=== PATIENT | male | born 1975 | race Hispanic/Latino ===

== ENCOUNTER 2022-05-12 12:02 | Emergency (ER) | payer OTHER ==
--- OUTSIDE RECORDS SUMMARY | 2022-05-12 12:05 | XMS REPORT | Continuity of Care Document ---
:1975 Author Organization [facility] t Address [address] [place] [address] Care Team Providers Name Role Phone Sharpless Primary Care Physician Thien RN, Abbie Argueta Attending Clinician Unavailable Pob1, Acute Care Clinic Attending Clinician Unavailable Lidya Schilling Attending Clinician LIDYA HOGUE Attending Clinician Unavailable Doctor Unassigned, Faith Attending Clinician Unavailable Payers Payer Name Policy Type Policy Number Effective Date Expiration Date S ource Problems Condition Condition Condition Status Onset Resolution Last Treating Co mments Source Name Details Category Date Date Treatment Clinician Date Closed Closed Disease Active [facility] nondisplac nondisplac 8 [facility] ed ed 00:00: Medical fracture fracture 00 Center of seventh of seventh cervical cervical vertebra, vertebra, unspecifie unspecifie d fracture d fracture morphology morphology , initial , initial encounter encounter Cervical Cervical Disease Active [facility] l [facility] Center Hypertensi Hypertensi Disease Active U nivers on on ity of [facility] Hyperlipid Hyperlipid Disease Active U nivers emia emia ity of [facility] Allergies, Adverse Reactions, Alerts Allergy Allergy Status Severity Reaction(s) Onset Inactive Treating Comm ents Source Name Type Date Date Clinician Clindamy Propensi Active Nausea Univer s joby ty to and/or 5-21 ity of adverse Vomiting 00:00: [place] reaction 00 Medical s to Branch drug CLINDAMY DRUG Active N/V Univers JOBY INGREDI 5-21 ity of 00:00: [address] Social History Social Habit Start Date Stop Date Quantity Comments Source History of Cigarette Smoker Universi ty of tobacco use [facility] Alcohol Comment 2019-06-17 2019-06-17 occasional Universit y of 00:00:00 00:00:00 [facility] Alcohol intake 2015-11-17 2015-11-17 Current drinker [facility] 00[facility]00 [facility]:00:00 alcohol (finding) [facility] Center Sex Assigned At [address] [facility] 00:00:00 [facility]00 [facility] Smoking Status Start Date Stop Date Source Current some day smoker 2019-06-17 00:00:00 [facility] Medications Ordered Filled Start Stop Current Ordering Indication Dosage Frequency Signature Comments Components Source Medication Medication Date Date Medication? Clinician (SIG) Name Name losartan Yes 50mg Take 50 mg Uni vers 100 mg 3-27 by mouth. ity of tablet 17:17: [address] losartan 2019-0 Yes 50mg Take 50 mg Uni vers 100 mg 3-27 by mouth. ity of tablet 17:17: [address] losartan 2019-0 Yes 50mg Take 50 mg Uni vers 100 mg 3-27 by mouth. ity of tablet 17:17: [address] amLODIPine 2019-0 2020- No 2.5mg Take 2.5 U nivers 2.5 mg 2-10 05-11 mg by ity of tablet 00:00: 04:59 mouth. [place] 00 :00 [facility] amLODIPine 2019-0 2020- No 2.5mg Take 2.5 U nivers 2.5 mg 2-10 05-11 mg by ity of tablet 00:00: 04:59 mouth. [place] 00 :00 [facility] amLODIPine 2019-0 2020- No 2.5mg Take 2.5 U nivers 2.5 mg 2-10 05-11 mg by ity of tablet 00:00: 04:59 mouth. [place] 00 :00 [facility] metFORMIN 2019-0 Yes 500mg Take 500 Uni vers 500 mg 2-06 mg by ity of tablet 00:00: mouth 2 [place] (two) Medical times Branch daily. metFORMIN 2020-0 Yes 500mg Take 500 Uni vers 500 mg 2-06 mg by ity of tablet 00:00: mouth 2 [place] (two) Medical times Branch daily. metFORMIN Yes 500mg Take 500 Uni vers 500 mg 2-06 mg by ity of tablet 00:00: mouth 2 [place] (two) Medical times Branch daily. simvastatin 2018-03- No 10mg Take 10 mg Univers 10 mg 07-17 by mouth. ity of tablet 00:00: 04:59 [place] 00 :00 Medical Branch simvastatin 2018-03- No 10mg Take 10 mg Univers 10 mg 07-17 by mouth. ity of tablet 00:00: 04:59 [place] 00 :00 Medical Branch simvastatin 2018-03- No 10mg Take 10 mg Univers 10 mg 07-17 by mouth. ity of tablet 00:00: 04:59 [place] 00 :00 Medical Branch LOSARTAN 2015- Yes 50mg QD Take [address] POTASSIUM 8-29 by mouth [facility] (LOSARTAN 04:59: daily. Medica l ORAL) 43 Center traMADol Yes 50mg Q.[id number] Take [address] (ULTRAM) 50 8- [id number] by mouth 3 [facility] mg tablet 04:59: 3D (three) Medic al 43 times Center daily. ondansetron Yes 4mg Take [address] (ZOFRAN) 4 11-18 by mouth [facility] MG tablet 04:59: every 8 Medic al 43 (eight) Center hours. ergocalcife Yes 25107M Q7D Take [facility] rol 8-29 50,000 [facility] (VITAMIN 04:59: Units by Medic al D2) 50,[address] unit a week. capsule metFORMIN Yes 500mg Take [address] (GLUCOPHAGE 8-29 mg by [facility] ) 500 MG 04:59: mouth 2 Medica l tablet 43 (two) Center times daily with breakfast and dinner. amLODIPine 2015-0 Yes 2.5mg QD Take 2.[address] (NORVASC) 8-29 mg by [facility] 2.5 MG 04:59: mouth Medical tablet 43 daily. Center METRONIDAZO 2015-0 Yes 500mg Q.[id number] Take [address] LE ORAL 8-08 [id number] mg by [facility]ukes 00:00: 3D mouth 3 Medical 00 (three) Center times daily. Vital Signs Vital Name Observation Time Observation Value Comments Source Systolic blood 2019-06-17 17:15:00 138 mm[Hg] Univer sity of pressure [facility] Diastolic blood 2019-06-17 17:15:00 92 mm[Hg] Unive rsity of pressure [facility] Heart rate 2019-06-17 17:14:00 97 /min [facility] Body temperature 2019-06-17 17:14:00 37.22 Larisa [facility] Respiratory rate 2019-06-17 17:14:00 18 /min [facility] Body height 2019-06-17 17:14:00 165.1 cm Universi [facility] Body weight 2019-06-17 17:14:00 99.791 kg [facility] BMI 2019-06-17 17:14:00 36.61 kg/m2 [facility] Oxygen saturation in 2019-06-17 17:14:00 98 /min [facility] blood by [facility] Pulse oximetry [place] Procedures Procedure Date / Time Performed Performing Clinician [facility] e CONSENT/REFUSAL FOR 2019-06-17 05:01:00 Doctor Unassigned, No Un [facility] DIAGNOSIS AND Name [facility] TREATMENT POCT FLU A AND B 2019-06-17 00:00:00 Lidya Hogue [facility] ([facility]) [facility] Encounters Start End Encounter Admission Attending Care Care Encounter Source Date/Time Date/Time Type Type Clinicians Facility Department ID 2019-06-19 2019-06-19 Telephone KEENA Neumann [id number] Univers 00:00:00 00:00:00 Abbie [place] [id number] ity of [facility] [id number] [place] [phone] [facility] 019 Branch 2019-06-17 2019-06-17 Urgent Pob1, Acute Care Clinic [facility] [id number] Univers 11:59:43 12:19:43 Lidya [facility] [id number] ity [facility] [id number] [place] Professio [phone] Ok dical [facility] [address] Branch [address] 2019-06-17 2019-06-17 Outpatient R RICHIE HOGUE [facility] [id number] Univers 12:00:00 12:00:00 LIDYA burkett [facility] 2019-06-17 2019-06-17 Orders Doctor KEENA [id number] Univers 00:00:00 00:00:00 Only Unassigned, YOKASTA [id number] ity of Faith [facility] [id number] [place] [phone] [address] Results Test Description Test Time Test Comments Results Result Comments Source POCT FLU A AND B (MOLECULAR) 2019-06-17 17:33:00 Test Item Value Reference Range Interpretation Comme nts POCT INFLUENZA A (test code = 3840) Negative Negative - Negativ e POCT INFLUENZA B (test code = 3841) Negative Negative - Negativ e [facility]
[2022-05-12 13:11] LABS: Urine Blood Negative (Negative); Urine Glucose Negative (Negative); Urine Protein Trace (Negative); Urine pH 5.5 (5.0-7.0)
[2022-05-12 13:12] LABS: Hematocrit 41.4 % (39.6-49.0); Lymphocytes % 25.6 % (15.3-44.8); MCV 87.8 fL (80-100); MPV 6.7 fL (7.6-11.3); RBC Red Blood Cell Count 4.72 M/uL (4.33-5.43)
[2022-05-12 13:22] LABS: Albumin 3.5 g/dL (3.4-5.0); Bilirubin Total 1.1 mg/dL (0.2-1.0); Potassium 3.6 mmol/L (3.5-5.1)
--- NOTE | 2022-05-12 14:03 | RAD REPORT ---
EXAM DESCRIPTION: CTAbdomen Pelvis W Contrast - 05/12/2022 1:45 pm CLINICAL HISTORY: Abdominal pain. ABD PAIN COMPARISON: No comparisons TECHNIQUE: Biphasic CT imaging of the abdomen and pelvis was performed with 100 ml non-ionic IV cont rast. All CT scans are performed using dose optimization technique as appropriate and may include automated exposure control or mA/KV adjustment according to patient size. FINDINGS: The lung bases are clear. The liver shows diffuse fatty infiltration. Cholecystectomy. Spleen, pancreas, adrenal glands and kid neys are within normal limits. No bowel obstruction, free air, free fluid or abscess. The appendix is normal. No evidence of signi ficant lymphadenopathy. No suspicious bony findings. IMPRESSION: No acute intra-abdominal or pelvic finding. Fatty liver.
--- NOTE | 2022-05-12 15:25 | EDPHYS ---
Physician Documentation [facility] Name: Trey Grover Age: 47 yrs Sex: Male : 1975 Arrival Date: 05/12/2022 Time: 12:05 Bed 12 Private MD: ED Physician Darek Freed HPI: 05/12 16:48 This 47 yrs old Male presents to ER via Ambulatory with complaints of kb Abdominal Pain. 16:48 The patient presents with abdominal pain in the upper abdomen. Onset: The kb symptoms/episode began/occurred 2 day(s) ago. The symptoms do not radiate. Associated signs and symptoms: Pertinent positives: constipation, nausea, Pertinent negatives: fever, vomiting. The symptoms are described as constant. Modifying factors: The symptoms are alleviated by nothing, the symptoms are aggravated by nothing. Severity of pain: At its worst the pain was mild moderate in the emergency department the pain is unchanged. The patient has not experienced similar symptoms in the past. The patient has not recently seen a physician. Patient reports constipation and had upper abdominal pain for 2 days. States he was able to have a bowel movement this morning but he went to the to come get checked out because he will be out of town for work for the next week. Reports nausea body aches, and malaise.. Historical: - Allergies: 12:23 No Known Allergies; jl7 - Home Meds: 12:23 metformin 500 mg Oral Tb24 1 tab once daily [Active]; losartan 25 mg Oral tab 1 tab 2 jl7 times per day [Active]; hydrochlorothiazide Oral [Active]; - PMHx: 12:23 Diabetes - NIDDM; Diverticulitis; Hypertension; jl7 - PSHx: 12:23 Cholecystectomy; jl7 - Immunization history:: Client reports receiving the 2nd dose of the Covid vaccine. - Social history:: Smoking status: Patient denies any tobacco usage or history of. ROS: 16:22 Constitutional: Negative for fever, chills, and weight loss. kb 16:22 Abdomen/GI: Positive for abdominal pain, nausea, Negative for vomiting, diarrhea, constipation. 16:22 All other systems are negative. Exam: 16:22 Constitutional: This is a well developed, well nourished patient who is awake, alert, kb and in no acute distress. Head/Face: Normocephalic, atraumatic. ENT: Moist Mucous membranes Cardiovascular: Regular rate and rhythm with a normal S1 and S2. No gallops, murmurs, or rubs. No pulse deficits. Respiratory: Respirations even and unlabored. No increased work of breathing. Talking in full sentences Abdomen/GI: Soft, non-tender. No distention Skin: Warm, dry with normal turgor. Normal color. MS/ Extremity: Pulses equal, no cyanosis. Neurovascular intact. Full, normal range of motion. Neuro: Awake and alert, GCS 15, oriented to person, place, time, and situation. Moves all extremities. Normal gait. Vital Signs: 12:22 BP 96 / 73; Pulse 100; Resp 17; Temp 98.1; Pulse Ox 96% on R/A; jl7 MDM: 12:24 Patient medically screened. kb 16:23 Differential diagnosis: diverticulitis, gastritis, GI Bleed, non-specific abd pain. kb Data reviewed: vital signs, nurses notes. 16:50 Test considered but Not performed: Labs: COVID and flu test considered for malaise and kb body aches but patient does not want to be tested for those things.. 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 ED course: Patient is a 47-year-old male who presents with upper abdominal pain and constipation for a couple days as well as nausea, malaise and body aches that started today. Physical exam unremarkable, no abdominal tenderness. CT and serum labs done and reviewed, no acute findings. Patient educated to follow-up with PCP and GI for continued symptoms. Verbal understanding received. 05/12 12:24 Order name: CBC with Diff kb 05/12 12:24 Order name: CMP kb 05/12 12:24 Order name: Lipase kb 05/12 13:12 Order name: Urine Dipstick-Ancillary; Complete Time: 13:15 EDMS 05/12 13:20 Order name: CBC with Automated Diff; Complete Time: 13:20 EDMS 05/12 13:23 Order name: Comprehensive Metabolic Panel; Complete Time: 13:29 EDMS 05/12 12:24 Order name: CT Abd/Pelvis - IV Contrast Only kb 05/12 12:24 Order name: IV Saline Lock; Complete Time: 13:00 kb 05/12 12:24 Order name: Labs collected and sent; Complete Time: 13:00 kb 05/12 13:23 Order name: Lipase; Complete Time: 13:29 EDMS 05/12 14:03 Order name: CT; Complete Time: 14:03 EDMA 05/12 12:24 Order name: Urine Dipstick-Ancillary (obtain specimen); Complete Time: 13:10 kb Administered Medications: 15:50 Drug: Zofran (Ondansetron) 4 mg Route: IVP; Site: right antecubital; ss 15:52 Drug: NS 0.9% 1000 ml Route: IV; Rate: 1 bolus; Site: right antecubital; ss 15:52 Drug: Pepcid (famotidine) 20 mg Route: IVP; Site: right antecubital; ss Disposition: 16:35 Co-signature as Attending Physician, Darek Freed MD I reviewed the patient's care rn provided by the Advanced Practice Provider and agree with the diagnosis and treatment plan. Disposition Summary: 05/12/22 15:24 Discharge Ordered Location: Home kb Condition: Stable kb Diagnosis - Abdominal pain, Generalized kb Followup: kb - With: Private Physician - When: 2 - 3 days - Reason: Recheck today's complaints, Continuance of care, Re-evaluation by your physician Followup: kb - With: Emergency Department - When: As needed - Reason: Worsening of condition Discharge Instructions: - Discharge Summary Sheet kb - Abdominal Pain, Adult, [id number] kb Forms: - Medication Reconciliation Form kb - Thank You Letter kb - Antibiotic Education kb - Prescription Opioid Use kb Signatures: Dispatcher [employer] EDMS Jennifer Cifuentes, PORTABLE TRACK CREW CHIEF-C PORTABLE TRACK CREW CHIEF-Nashb Darek Freed MD MD rn Smirch, Shelby, RN RN ss Leal, Jahala, RN RN jl7
--- NOTE | 2022-05-12 15:25 | ER ---
Nurse's Notes [facility] Name: Trey Grover Age: 47 yrs Sex: Male : 1975 Arrival Date: 05/12/2022 Time: 12:05 Bed 12 Private MD: Diagnosis: Abdominal pain, Generalized Presentation: 05/12 12:22 Chief complaint: Patient states: Upper abdominal pain and nausea x 1 day. Coronavirus jl7 screen: At this time, the client does not indicate any symptoms associated with coronavirus-19. Ebola Screen: No symptoms or risks identified at this time. Initial Sepsis Screen: Does the patient meet any 2 criteria? No. Patient's initial sepsis screen is negative. Does the patient have a suspected source of infection? No. Patient's initial sepsis screen is negative. Risk Assessment: Do you want to hurt yourself or someone else? Patient reports no desire to harm self or others. Onset of symptoms was May 11, 2022. 12:22 Method Of Arrival: Ambulatory jl7 12:22 Acuity: JAMARCUS 3 jl7 Triage Assessment: 12:23 General: Appears in no apparent distress. uncomfortable, Behavior is calm, cooperative, jl7 appropriate for age. Pain: Complains of pain in epigastric area, right upper quadrant and left upper quadrant Pain currently is 3 out of 10 on a pain scale. GI: Reports nausea, Patient currently denies diarrhea, vomiting. Historical: - Allergies: 12:23 No Known Allergies; jl7 - Home Meds: 12:23 metformin 500 mg Oral Tb24 1 tab once daily [Active]; losartan 25 mg Oral tab 1 tab 2 jl7 times per day [Active]; hydrochlorothiazide Oral [Active]; - PMHx: 12:23 Diabetes - NIDDM; Diverticulitis; Hypertension; jl7 - PSHx: 12:23 Cholecystectomy; jl7 - Immunization history:: Client reports receiving the 2nd dose of the Covid vaccine. - Social history:: Smoking status: Patient denies any tobacco usage or history of. Screenin:21 [facility] ED Fall Risk Assessment (Adult) History of falling in the last 3 months, ss including since admission No falls in past 3 months (0 pts). Abuse screen: Denies threats or abuse. Denies injuries from another. Nutritional screening: No deficits noted. Tuberculosis screening: Never had TB. Assessment: 12:25 Reassessment: MAVERICK Rodriguez in triage assessing pt. jl7 16:00 General: Appears in no apparent distress. comfortable, Behavior is calm, cooperative. ss Neuro: Level of Consciousness is awake, alert, obeys commands, Oriented to person, place, time, situation. Cardiovascular: Capillary refill < 3 seconds is brisk in bilateral fingers Patient's skin is warm and dry. Respiratory: Airway is patent Respiratory effort is even, unlabored, Respiratory pattern is regular, symmetrical. Derm: Skin is intact, is healthy with good turgor, Skin is dry, Skin is pink, warm \T\ dry. normal. 16:20 Reassessment: Patient appears in no apparent distress at this time. Patient and/or ss family updated on plan of care and expected duration. Pain level reassessed. Patient is alert, oriented x 3, equal unlabored respirations, skin warm/dry/pink. Patient states feeling better. Patient states symptoms have improved. Vital Signs: 12:22 BP 96 / 73; Pulse 100; Resp 17; Temp 98.1; Pulse Ox 96% on R/A; jl7 ED Course: 12:05 Patient arrived in ED. mr 12:06 Jennifer Cifuentes, [facility] kb 12:06 Darek Freed MD is Attending Physician. kb 12:23 Triage completed. jl7 12:23 Arm band placed on right wrist. jl7 13:00 Inserted saline lock: 20 gauge in right antecubital area, using aseptic technique. Blood collected. 13:00 CBC with Diff Sent. zm 13:00 CMP Sent. 13:00 Lipase Sent. 15:51 Rochelle Chan, DAVID is Primary Nurse. ss 15:51 No provider procedures requiring assistance completed. IV discontinued, intact, ss bleeding controlled, No redness/swelling at site. Pressure dressing applied. Administered Medications: 15:50 Drug: Zofran (Ondansetron) 4 mg Route: IVP; Site: right antecubital; ss 15:52 Drug: NS 0.9% 1000 ml Route: IV; Rate: 1 bolus; Site: right antecubital; ss 15:52 Drug: Pepcid (famotidine) 20 mg Route: IVP; Site: right antecubital; ss Medication: 16:21 VIS not applicable for this client. ss Outcome: 15:24 Discharge ordered by . kenn 16:20 Discharged to home ambulatory. ss 16:20 Condition: good 16:20 Discharge instructions given to patient, Instructed on discharge instructions, follow up and referral plans. Demonstrated understanding of instructions, follow-up care. 16:24 Patient left the ED. Signatures: Jennifer Cifuentes, MICHELLEC RESERVOIR ENGINEERING MANAGER-Ronal MorinJenna mr Rochelle Chan RN RN Jsesica Read RN RN jl7 Rebeca Bruno Corrections: (The following items were deleted from the chart) 16:20 15:51 Patient did not have IV access during this emergency room visit. ss ss
[2022-05-12] MEDS ORDERED: FAMOTIDINE 20 MG/2 ML VIAL IV ONE (15:48)
[2022-05-12] MEDS ORDERED: NA CHLORIDE 0.9% 1,000 ML ONE (15:48)
[2022-05-12] MEDS ORDERED: ONDANSETRON 4 MG/2 ML VIAL ONE (15:48)
[2022-05-12 17:51] VITALS: BP 96/73; TEMP 98.1; O2SAT 96
== END 2022-05-12 16:24 | disposition home or self-care (01) ==
LOC: ER 12:02
DX: R10.84 Generalized abdominal pain (principal); I10 Essential (primary) hypertension; E11.9 Type 2 diabetes mellitus without complications
CPT/HCPCS: 85025; 36415; 81003; 83690; 80053; 74177; 96375; 96374; 99283; Q9967; J7030; J2405

== ENCOUNTER → 2023-04-16 | Emergency (ER) | payer OTHER ==
[~2023-04-16] MED LIST: DIPHENHYDRAMINE 50 MG/ML VIAL ONE; METOCLOPRAMIDE 10 MG/2mL INJ ONE; MORPHINE 2 MG/ML SYR ONE; NA CHLORIDE 0.9% 1,000 ML ONE; NA CHLORIDE 0.9% 500 ML ONE
[2023-04-16 16:51] LABS: Absolute Lymphocytes (CBC) 1.1 K/uL (0.7-4.9); Hematocrit 41.3 % (39.6-49.0); Lymphocytes % 25.1 % (15.3-44.8); MCV 88.2 fL (80-100); MPV 7.1 fL (7.6-11.3); Platelets 147 thou/uL (152-406); RBC Red Blood Cell Count 4.68 M/uL (4.33-5.43)
[2023-04-16 17:07] LABS: Albumin 3.9 g/dL (3.4-5.0); Bilirubin Total 0.5 mg/dL (0.2-1.0); Potassium 3.9 mEq/L (3.5-5.1); Protein, Total 7.5 g/dL (6.4-8.2)
--- NOTE | 2023-04-16 18:06 | RAD REPORT ---
EXAM DESCRIPTION: CTHead angio04/16/2023 5:40 pm CLINICAL HISTORY: Headache and neck pain COMPARISON: none TECHNIQUE: 100 cc Isovue [address] angiogram of the head was obtained. 3D MIPS reconstruction performed. All CT scans are performed using dose optimization technique as appropriate and may include automated exposure control or mA/KV adjustment according to patient size. FINDINGS: The internal carotid, basilar, anterior cerebral, middle cerebral and posterior cerebral a rteries do not demonstrate a significant stenosis An aneurysm is not seen No large vessel occlusion IMPRESSION: No significant abnormality is displayed
--- NOTE | 2023-04-16 18:06 | RAD REPORT ---
EXAM DESCRIPTION: CT - Head C Spine Mpr Wo Con - 04/16/2023 5:31 pm CLINICAL HISTORY: Headache and neck pain COMPARISON: None. TECHNIQUE: Computed axial tomography of the head and cervical spine was obtained. Sagittal and coronal reconstruction was performed. All CT scans are performed using dose optimization technique as appropriate and may include automated exposure control or mA/KV adjustment according to patient size. FINDINGS: An intracranial bleed is not seen. The ventricles are normal in caliber. No significant hypodensity within the brain. An extra-axial fluid collection is not noted. Fluid within the visualized sinuses and mastoids is not seen A cervical fracture is not visualized. No dislocation is noted. Osteophytes and facet hypertrophy at C2-3 result in moderate narrowing left neural foramina Anterior plate, screws and bone plugs have been placed C5 and C6. Calcification posterior longitudinal ligament C7 results in mild narrowing the thecal sac. IMPRESSION: No acute intracranial abnormality is seen. A cervical fracture is not visualized. 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
--- NOTE | 2023-04-16 18:06 | RAD REPORT ---
EXAM DESCRIPTION: Jono Angio04/16/2023 5:40 pm CLINICAL HISTORY: Headache and neck pain COMPARISON: None TECHNIQUE: 100 cc Isovue [address] angiogram of the neck was obtained. 3D MIPS reconstruction performed. All CT scans are performed using dose optimization technique as appropriate and may include automated exposure control or mA/KV adjustment according to patient size. FINDINGS: Mild plaque is present within common carotid, internal carotid and external carotid arteri es bilaterally Mild plaque vertebral arteries No dissection is seen. No high-grade stenosis IMPRESSION: No significant abnormality is displayed [place] crieria Mild stenosis 0 to 49 % Moderate stenosis 50-69% Severe stenosis 70-99%
--- NOTE | 2023-04-16 18:36 | ER ---
Nurse's Notes [facility] Name: Trey Grover Age: 48 yrs Sex: Male : 1975 Arrival Date: 04/16/2023 Time: 15:50 Bed 4 Private MD: Diagnosis: Headache Presentation: 04/16 16:00 Chief complaint: Patient states: he has a headache that he woke up with this morning, ap3 but it has gotten progressively worse throughout the day. patient denies any trauma. Coronavirus screen: At this time, the client does not indicate any symptoms associated with coronavirus-19. Ebola Screen: No symptoms or risks identified at this time. Initial Sepsis Screen: Does the patient meet any 2 criteria? No. Patient's initial sepsis screen is negative. Does the patient have a suspected source of infection? No. Patient's initial sepsis screen is negative. Risk Assessment: Do you want to hurt yourself or someone else? Patient reports no desire to harm self or others. Onset of symptoms was April 16, 2023. 16:00 Method Of Arrival: Ambulatory ap3 16:00 Acuity: JAMARCUS 2 ap3 Triage Assessment: 16:02 Headache History: The patient has had previous headaches and this one is different than ap3 previous episodes, and this one is more severe than previous episodes. General: Appears uncomfortable, Behavior is calm, cooperative, appropriate for age. Pain: Complains of pain in right frontal area, right side of the back of head, right temporal area and right occipital area Pain currently is 10 out of 10 on a pain scale. Pain began gradually, Also complains of photophobia. Neuro: Level of Consciousness is awake, alert, obeys commands, Oriented to person, place, time, situation, Appropriate for age. Cardiovascular: Patient's skin is warm and dry. Respiratory: Airway is patent Respiratory effort is even, unlabored, Respiratory pattern is regular, symmetrical. Historical: - Allergies: 16:05 No Known Allergies; ap3 - Home Meds: 16:49 Hydrochlorothiazide Oral [Active]; losartan 25 mg Oral tab 1 tab 2 times per day tl4 [Active]; metformin 500 mg Oral Tb24 1 tab once daily [Active]; - PMHx: 16:02 Diabetes - NIDDM; Diverticulitis; Hypertension; ap3 - PSHx: 16:02 Cholecystectomy; ap3 - Immunization history:: Client reports receiving the 2nd dose of the Covid vaccine. - Social history:: Smoking status: Patient reports the use of cigarette tobacco products, denies chronic smoking, but will smoke occasionally. - Family history:: not pertinent. - Hospitalizations: : No recent hospitalization is reported. Screenin:03 Abuse screen: Denies threats or abuse. Nutritional screening: No deficits noted. ap3 Tuberculosis screening: No symptoms or risk factors identified. 16:48 [facility] ED Fall Risk Assessment (Adult) History of falling in the last 3 months, tl4 including since admission No falls in past 3 months (0 pts) Confusion or Disorientation No (0 pts) Intoxicated or Sedated No (0 pts) Impaired Gait No (0 pts) Mobility Assist Device Used No (0 pt) Altered Elimination No (0 pt) Score/Fall Risk Level 0 - 2 = Low Risk Oriented to surroundings, Maintained a safe environment, Educated pt \T\ family on fall prevention, incl call for assistance when getting out of bed, Assessed \T\ reinforced patient's understanding of fall precautions, Provided non-skid footwear, Hourly rounding (assess needs \T\ fall precautionary measures) done, Used ambulatory aids as needed (educated on \T\ assisted with), Used gait belt as appropriate. Assessment: 16:47 Reassessment: No changes from previously documented assessment. Patient and/or family tl4 updated on plan of care and expected duration. Pain level reassessed. Patient is alert, oriented x 3, equal unlabored respirations, skin warm/dry/pink. Patient states symptoms have not improved. Pain: Complains of pain in face and right occipital area and right temporal area and right side of the back of head and right frontal area. GI: No deficits noted. No signs and/or symptoms were reported involving the gastrointestinal system. : No deficits noted. No signs and/or symptoms were reported regarding the genitourinary system. EENT: No deficits noted. No signs and/or symptoms were reported regarding the EENT system. Vital Signs: 16:00 Pulse 96; Resp 19; Temp 98.4; Pulse Ox 98% on R/A; ap3 16:02 BP 137 / 85; ap3 16:05 Weight 100.7 kg; Height 5 ft. 5 in. ; ap3 16:48 BP 142 / 90; Pulse 105; Resp 18; Pulse Ox 95% on R/A; Pain 10/10; tl4 18:52 BP 134 / 82; Pulse 95; Resp 15; Pulse Ox 99% ; ko1 16:05 Body Mass Index 36.94 (100.70 kg, 165.1 cm) ap3 16:48 Pain Scale: Adult tl4 [place] Coma Score: 16:48 Eye Response: spontaneous(4). Motor Response: obeys commands(6). Verbal Response: tl4 oriented(5). Total: 15. 18:31 Eye Response: spontaneous(4). Motor Response: obeys commands(6). Verbal Response: rn oriented(5). Total: 15. ED Course: 15:57 Patient arrived in ED. mg5 15:59 Darek Freed MD is Attending Physician. rn 16:00 Attending Physician role handed off by Darek Freed MD shaila 16:00 Karl Hayden MD is Attending Physician. shaila 16:02 Triage completed. ap3 16:03 Arm band placed on right wrist. ap3 16:03 Patient has correct armband on for positive identification. ap3 16:05 Attending Physician role handed off by Karl Hayden MD rn 16:05 Darek Freed MD is Attending Physician. rn 16:45 Comprehensive Metabolic Panel Sent. tl4 16:45 CBC with Diff Sent. tl4 16:46 Inserted saline lock: 20 gauge in right antecubital area, using aseptic technique. tl4 Blood collected. 16:49 Provided Education on: ed process. tl4 16:49 No provider procedures requiring assistance completed. tl4 17:04 Anahi Bauman, RN is Primary Nurse. ko1 17:32 CT Head C Spine In Process Unspecified. EDMS 17:[address] In Process Unspecified. EDMS 17:[address] In Process Unspecified. EDMS 18:52 IV discontinued, intact, bleeding controlled, No redness/swelling at site. Pressure ko1 dressing applied. Administered Medications: 16:06 CANCELLED (Duplicate Order): tsdhecvco15 mg IVP once rn 16:45 Drug: NS 0.9% IV 500 ml IV at bolus once Route: IV; Rate: bolus; Site: right tl4 antecubital; Delivery: Primary tubing; 18:46 Follow up: Response: No adverse reaction; IV Status: Completed infusion; IV Intake: tl4 500ml 16:45 Drug: metoCLOPramide IVP 10 mg IVP once; over 1 to 2 minutes Route: IVP; Infused Over: tl4 2 mins; Site: right antecubital; 18:46 Follow up: Response: No adverse reaction tl4 16:46 Drug: diphenhydrAMINE IVP 50 mg IVP once Route: IVP; Infused Over: 3 mins; Site: right tl4 antecubital; 18:46 Follow up: Response: No adverse reaction tl4 16:46 Drug: morphine IVP or IV 2 mg IVP once over 4 mins Route: IVP; Infused Over: 4 mins; tl4 Site: right antecubital; 17:44 Follow up: Response: No adverse reaction ko1 17:26 Drug: morphine IVP or IV 2 mg IVP once over 4 mins Route: IVP; Infused Over: 4 mins; ko1 Site: right antecubital; 17:44 Follow up: Response: No adverse reaction; Pain is decreased ko1 18:46 Drug: NS 0.9% IV 1000 ml IV at 125 ml/hr continuous Route: IV; Rate: 125 ml/hr; Site: tl4 right antecubital; 18:47 Follow up: Response: No adverse reaction; IV Status: Completed infusion; IV Intake: tl4 200ml Medication: 16:48 VIS not applicable for this client. tl4 Intake: 18:46 IV: 500ml; Total: 500ml. tl4 18:47 IV: 200ml; Total: 700ml. tl4 Outcome: 18:35 Discharge ordered by . luiz 18:52 Discharged to home ambulatory, with family, ko1 18:52 Condition: stable 18:52 Discharge instructions given to patient, family, Instructed on discharge instructions, follow up and referral plans. Demonstrated understanding of instructions, follow-up care, 18:57 Patient left the ED. ko1 Signatures: Dispatcher [employer] EDKarl Amezquita MD MD cha Nieto, Roman, MD MD rn Prokisch, Amanda, RN RN ap3 Oliver, Kathy, RN RN ko1 Danielle Khalil mg5 Sid Sherman tl4
--- NOTE | 2023-04-16 18:36 | EDPHYS ---
Physician Documentation [facility] Name: Trey Grover Age: 48 yrs Sex: Male : 1975 Arrival Date: 04/16/2023 Time: 15:50 Bed 4 Private MD: ED Physician Darek Freed HPI: 04/16 17:48 This 48 yrs old Male presents to ER via Ambulatory with complaints of Headache.rn 17:48 The patient complains of pain to the forehead. The patient describes the headache as rn aching. Onset: The symptoms/episode began/occurred this morning. Associated signs and symptoms: Pertinent negatives: altered mental status, fever, neck stiffness, rash, vision changes, vision loss, vomiting, weakness, vertigo. Severity of symptoms: At its worst the pain was moderate, in the emergency department the pain is unchanged. Headache History: The patient has had previous headaches and this one is similar to previous episodes. The symptoms are alleviated by nothing. the symptoms are aggravated by lights, noise. The patient has experienced similar episodes in the past. The patient has not recently seen a physician. Reports headache that began this morning. Has history of headaches and migraines but worse today. No trauma. No fever. No focal neurological deficit. Reports history of neck problems with posterior headaches. Today is hurting more frontal. No vision changes. No neck stiffness. No weakness or numbness of extremities. No speech problem.. Historical: - Allergies: 16:05 No Known Allergies; ap3 - Home Meds: 16:49 Hydrochlorothiazide Oral [Active]; losartan 25 mg Oral tab 1 tab 2 times per day tl4 [Active]; metformin 500 mg Oral Tb24 1 tab once daily [Active]; - PMHx: 16:02 Diabetes - NIDDM; Diverticulitis; Hypertension; ap3 - PSHx: 16:02 Cholecystectomy; ap3 - Immunization history:: Client reports receiving the 2nd dose of the Covid vaccine. - Social history:: Smoking status: Patient reports the use of cigarette tobacco products, denies chronic smoking, but will smoke occasionally. - Family history:: not pertinent. - Hospitalizations: : No recent hospitalization is reported. ROS: 17:48 Constitutional: Negative for fever, chills, and weight loss, Eyes: Negative for injury, rn pain, redness, and discharge, Neck: Negative for injury, pain, and swelling, Cardiovascular: Negative for chest pain, palpitations, and edema, Respiratory: Negative for shortness of breath, cough, wheezing, and pleuritic chest pain, Abdomen/GI: Negative for abdominal pain, nausea, vomiting, diarrhea, and constipation, Back: Negative for injury and pain, MS/Extremity: Negative for injury and deformity, Skin: Negative for injury, rash, and discoloration, Neuro: Negative for weakness, numbness, tingling, and seizure, Exam: 17:48 Constitutional: This is a well developed, well nourished patient who is awake, alert, 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 Eyes: Pupils equal round and reactive to light, extra-ocular motions intact. Neck: Supple, no meningismus Cardiovascular: Tachycardic, regular. No pulse deficits. Respiratory: No increased work of breathing, no retractions or nasal flaring. Abdomen/GI: Soft, non-tender Neuro: Awake and alert, GCS 15, oriented to person, place, time, and situation. Cranial nerves II-XII grossly intact. Motor strength 5/5 in all extremities. Sensory grossly intact. Cerebellar exam normal. Normal gait. Vital Signs: 16:00 Pulse 96; Resp 19; Temp 98.4; Pulse Ox 98% on R/A; ap3 16:02 BP 137 / 85; ap3 16:05 Weight 100.7 kg; Height 5 ft. 5 in. ; ap3 16:48 BP 142 / 90; Pulse 105; Resp 18; Pulse Ox 95% on R/A; Pain 10/10; tl4 18:52 BP 134 / 82; Pulse 95; Resp 15; Pulse Ox 99% ; ko1 16:05 Body Mass Index 36.94 (100.70 kg, 165.1 cm) ap3 16:48 Pain Scale: Adult tl4 [place] Coma Score: 16:48 Eye Response: spontaneous(4). Motor Response: obeys commands(6). Verbal Response: tl4 oriented(5). Total: 15. 18:31 Eye Response: spontaneous(4). Motor Response: obeys commands(6). Verbal Response: rn oriented(5). Total: 15. MDM: 15:59 Patient medically screened. rn 18:31 Differential diagnosis: hypertensive headache, intracerebral hemorrhage, migraine, rn neoplasm, sinusitis, subarachnoid bleed, tension headache, vasomotor headache. Data reviewed: vital signs, nurses notes, lab test result(s), radiologic studies, CT scan, and as a result, I will discharge patient. Counseling: I had a detailed discussion with the patient and/or guardian regarding the historical points, exam findings, and any diagnostic results supporting the discharge/admit diagnosis, lab results, radiology results, the need for outpatient follow up, to return to the emergency department if symptoms worsen or persist or if there are any questions or concerns that arise at home. Response to treatment: the patient's symptoms have mildly improved after treatment, and as a result, I will discharge patient. Special discussion: I discussed with the patient/guardian in detail that at this point there is no indication for admission to the hospital. It is understood, however, that if the symptoms persist or worsen the patient needs to return immediately for re-evaluation. Based on the history and exam findings, there is no indication for further emergent testing or inpatient evaluation. I discussed with the patient/guardian the need to see the neurologist for further evaluation of the symptoms. I discussed with the patient/guardian the need to see the primary care provider for further evaluation of the symptoms. 18:31 ED course: I have personally reviewed all of the results, including but not limited to rn blood tests and imaging deemed necessary to safely discharge this patient at this time. All results given to and printed out for patient. I personally went over all the results with the patient and answered all questions. Patient will follow-up with PCP and or specialist as discussed. Return precautions given and understood.. 04/16 16:03 Order name: CBC with Diff; Complete Time: 17:10 [facility] 04/16 16:03 Order name: Comprehensive Metabolic Panel; Complete Time: 17:10 [facility] 04/16 16:06 Order name: CT Head C Spine; Complete Time: 18:19 04/16 16:06 Order name: Head Angio CT; Complete Time: 18:19 04/16 16:06 Order name: Neck Angio CT; Complete Time: 18: 04/16 16:04 Order name: Oxygen; Complete Time: 16:29 [facility] Administered Medications: 16:06 CANCELLED (Duplicate Order): mg IVP once rn 16:45 Drug: NS 0.9% IV 500 ml IV at bolus once Route: IV; Rate: bolus; Site: right tl4 antecubital; Delivery: Primary tubing; 18:46 Follow up: Response: No adverse reaction; IV Status: Completed infusion; IV Intake: tl4 500ml 16:45 Drug: metoCLOPramide IVP 10 mg IVP once; over 1 to 2 minutes Route: IVP; Infused Over: tl4 2 mins; Site: right antecubital; 18:46 Follow up: Response: No adverse reaction tl4 16:46 Drug: diphenhydrAMINE IVP 50 mg IVP once Route: IVP; Infused Over: 3 mins; Site: right tl4 antecubital; 18:46 Follow up: Response: No adverse reaction tl4 16:46 Drug: morphine IVP or IV 2 mg IVP once over 4 mins Route: IVP; Infused Over: 4 mins; tl4 Site: right antecubital; 17:44 Follow up: Response: No adverse reaction ko1 17:26 Drug: morphine IVP or IV 2 mg IVP once over 4 mins Route: IVP; Infused Over: 4 mins; ko1 Site: right antecubital; 17:44 Follow up: Response: No adverse reaction; Pain is decreased ko1 18:46 Drug: NS 0.9% IV 1000 ml IV at 125 ml/hr continuous Route: IV; Rate: 125 ml/hr; Site: tl4 right antecubital; 18:47 Follow up: Response: No adverse reaction; IV Status: Completed infusion; IV Intake: tl4 200ml Disposition Summary: 04/16/23 18:35 Discharge Ordered Notes: Location: Home rn Problem: new rn Symptoms: have improved rn Condition: Stable rn Diagnosis - Headache rn Followup: rn - With: Private Physician - When: As needed - Reason: Recheck today's complaints, Re-evaluation by your physician Discharge Instructions: - Discharge Summary Sheet rn - General Headache Without Cause rn - Migraine Headache rn - Hypertension, Adult rn Forms: - Medication Reconciliation Form rn - Thank You Letter rn - Antibiotic staff development coordinator rn - Prescription Opioid Use rn - Patient Portal Instructions rn - Leadership Thank You Letter rn Signatures: Dispatcher [employer] Karl Portillo MD MD cha Nieto, Roman, MD MD rn Prokisch, Amanda, RN RN [email or web address] Anahi Bauman RN RN ko1 Sid Sherman tl4 Corrections: (The following items were deleted from the chart) 16:06 16:03 Ketorolac IVP 30 mg IVP once ordered. shaila dee 16:09 16:04 Head Brain Wo Cont+CT.RAD.BRZ ordered. EDMS EDMS
[2023-04-16 20:07] VITALS: TEMP 98.4
[2023-04-16 20:30] VITALS: BP 134/82; O2SAT 99
== END ==
LOC: ER 15:50
DX: R51.9 Headache, unspecified (principal); E11.9 Type 2 diabetes mellitus without complications; I10 Essential (primary) hypertension; Z79.84 Long term (current) use of oral hypoglycemic drugs; F17.210 Nicotine dependence, cigarettes, uncomplicated
CPT/HCPCS: 96361; 85025; 36415; 80053; 70450; 72125; 70496; 70498; 96375; 96374; 99284; Q9967; J2765; J1200; J2270 ×2; J7040; J7030

== ENCOUNTER 2023-07-22 19:23 | Emergency (ER) | payer OTHER ==
[2023-07-22] MEDS ORDERED: HYDROCODONE/APAP 5/325 MG TAB ONE (20:25)
--- NOTE | 2023-07-22 20:34 | RAD REPORT ---
EXAM DESCRIPTION: RAD - Ankle Left 3 View - 07/22/2023 8:26 pm CLINICAL HISTORY: PAIN COMPARISON: No comparisons FINDINGS: No acute fracture or dislocation seen. Small posterior and plantar calcaneal spurs.
--- NOTE | 2023-07-22 21:19 | ER ---
Nurse's Notes [facility] Name: Trey Grover Age: 48 yrs Sex: Male : 1975 Arrival Date: 07/22/2023 Time: 19:23 Bed 15 Private MD: Diagnosis: Contusion of left lower leg Presentation: 07/21 19:39 Chief complaint: Patient states: DROPPED BBQ PIT ON HIS LEFT CALF. NOW IT'S SWOLLEN, jj7 ABRASION AND HE CAN'T BEAR ANY WEIGHT. Coronavirus screen: At this time, the client does not indicate any symptoms associated with coronavirus-19. Ebola Screen: No symptoms or risks identified at this time. Initial Sepsis Screen: Does the patient meet any 2 criteria? No. Patient's initial sepsis screen is negative. Does the patient have a suspected source of infection? No. Patient's initial sepsis screen is negative. Risk Assessment: Do you want to hurt yourself or someone else? Patient reports no desire to harm self or others. Onset of symptoms was July 21, 2023. 19:39 Method Of Arrival: Wheelchair jj7 19:39 Acuity: JAMARCUS 4 jj7 Triage Assessment: 19:44 General: Appears in no apparent distress. comfortable, Behavior is calm, cooperative, jj7 appropriate for age. Pain: Complains of pain in left calf and left Achilles. Musculoskeletal: Reports pain in left calf and left Achilles. Injury Description: Abrasion. Historical: - Allergies: 19:44 No Known Allergies; jj7 - PMHx: 19:44 Diabetes - NIDDM; Diverticulitis; Hypertension; jj7 - PSHx: 19:44 Cholecystectomy; NECK (Cholecystectomy); jj7 - Immunization history:: Adult Immunizations not up to date, Client reports receiving the 2nd dose of the Covid vaccine, Flu vaccine is not up to date. - Infectious Disease History:: Denies. - Social history:: Smoking status: Patient/guardian denies using tobacco, the patient reports quitting approximately 1 years ago, Patient uses alcohol, occasionally. Patient/guardian denies using street drugs. Screenin:46 [facility] ED Fall Risk Assessment (Adult) History of falling in the last 3 months, jj7 including since admission No falls in past 3 months (0 pts) Confusion or Disorientation No (0 pts) Intoxicated or Sedated No (0 pts) Impaired Gait Yes (1 pt) Mobility Assist Device Used No (0 pt) Altered Elimination No (0 pt) Score/Fall Risk Level 0 - 2 = Low Risk Oriented to surroundings, Maintained a safe environment, Educated pt \T\ family on fall prevention, incl call for assistance when getting out of bed. Abuse screen: Denies threats or abuse. Nutritional screening: No deficits noted. Tuberculosis screening: No symptoms or risk factors identified. Assessment: 20:05 General: Appears in no apparent distress. Behavior is calm, cooperative. Pain: tl4 Complains of pain in left Achilles and left calf. Neuro: Level of Consciousness is awake, alert, obeys commands, Oriented to person, place, time, situation, Moves all extremities. Full function Gait is steady, Speech is normal. Cardiovascular: Capillary refill < 3 seconds Patient's skin is warm and dry. Respiratory: Airway is patent Respiratory effort is even, unlabored, Respiratory pattern is regular, symmetrical, Breath sounds are clear bilaterally. GI: No signs and/or symptoms were reported involving the gastrointestinal system. : No signs and/or symptoms were reported regarding the genitourinary system. EENT: No signs and/or symptoms were reported regarding the EENT system. Derm: No signs and/or symptoms reported regarding the dermatologic system. Musculoskeletal: Reports pain in left Achilles and left calf. 21:48 Reassessment: Prolonged time to discharge. Waiting for house carpenter to bring tl4 appropriate fitting crutches. 22:14 Reassessment: Crutches arrived and discharge completed. tl4 Vital Signs: 19:39 BP 124 / 82; Pulse 93; Resp 17; Temp 98.8; Pulse Ox 98% ; Weight 91.63 kg; Height 5 ft. jj7 5 in. ; Pain 4/10; 20:18 BP 115 / 65; Pulse 94; Resp 16; Pulse Ox 100% on R/A; Pain 8/10; tl4 19:39 Body Mass Index 33.61 (91.63 kg, 165.1 cm) jj7 19:39 Pain Scale: Adult jj7 20:18 Pain Scale: Adult tl4 ED Course: 19:28 Patient arrived in ED. ra3 19:34 Kell Tony PA-C is PHCP. sb4 19:34 Shanon Beltrán MD is Attending Physician. sb4 19:44 Triage completed. jj7 19:44 Arm band placed on right wrist. jj7 20:17 Sid Sherman, RN is Primary Nurse. tl4 20:19 No provider procedures requiring assistance completed. tl4 20:28 Ankle Left 3 View XRAY In Process Unspecified. EDMS 22:14 Patient has correct armband on for positive identification. Bed in low position. Call tl4 light in reach. Side rails up X 1. Provided Education on: ED process. Door closed. Noise minimized. Moved to private room. 22:14 Patient did not have IV access during this emergency room visit. Crutch training done. tl4 Administered Medications: 20:44 Drug: HYDROcodone-acetaminophen PO 5 mg-325 mg 2 tabs PO once Route: PO; tl4 21:31 Follow up: Response: No adverse reaction; Pain is decreased tl4 Medication: 19:46 VIS not applicable for this client. jj7 Outcome: 21:18 Discharge ordered by . sb4 22:14 Discharged to home ambulatory, with crutches, tl4 22:14 Condition: stable 22:14 Discharge instructions given to patient, Instructed on discharge instructions, follow up and referral plans. medication usage, crutch walking, Demonstrated understanding of instructions, follow-up care, medications, crutch walking, 22:15 Patient left the ED. tl4 Signatures: Dispatcher [employer] Lewis Anderson RN RN jj7 Kell Tony, PA-C PA-C sb4 Sid Sherman RN RN tl4 Kimberlee Reynolds 3
--- NOTE | 2023-07-22 21:20 | EDPHYS ---
Physician Documentation [facility] [place] Name: Trey Grover Age: 48 yrs Sex: Male : 1975 Arrival Date: 07/22/2023 Time: 19:23 Bed 15 Private MD: ED Physician Shanon Beltrán HPI: 07/21 19:52 This 48 yrs old Male presents to ER via Wheelchair with complaints of Foot sb4 Injury, Ankle Injury. 19:52 The patient presents with an injury, pain, that is acute, swelling, tenderness. The sb4 complaints affect the left Achilles. Context: The problem was sustained at home, resulted from a direct blow, from a heavy object, the patient can partially bear weight, must have assistance, Problem is a result from a previous injury: No. Onset: The symptoms/episode began/occurred yesterday. Modifying factors: The symptoms are alleviated by remaining still, the symptoms are aggravated by movement. Associated signs and symptoms: The patient has no apparent associated signs or symptoms. Treatment prior to arrival includes: hannah wrap, over the counter medications, NSAIDS. The patient has not experienced similar symptoms in the past. Historical: - Allergies: 19:44 No Known Allergies; jj7 - PMHx: 19:44 Diabetes - NIDDM; Diverticulitis; Hypertension; jj7 - PSHx: 19:44 Cholecystectomy; NECK (Cholecystectomy); jj7 - Immunization history:: Adult Immunizations not up to date, Client reports receiving the 2nd dose of the Covid vaccine, Flu vaccine is not up to date. - Infectious Disease History:: Denies. - Social history:: Smoking status: Patient/guardian denies using tobacco, the patient reports quitting approximately 1 years ago, Patient uses alcohol, occasionally. Patient/guardian denies using street drugs. ROS: 19:52 Constitutional: Negative for fever, chills, and weight loss, sb4 19:52 MS/extremity: Positive for injury or acute deformity, pain, swelling, tenderness, of the left Achilles, 19:52 All other systems are negative, Exam: 19:52 Constitutional: This is a well developed, well nourished patient who is awake, alert, sb4 and in no acute distress. Head/Face: Normocephalic, atraumatic. Eyes: Extra-ocular motions intact. Periorbital areas with no swelling, redness, or edema. ENT: Mucous membranes moist. 19:52 Musculoskeletal/extremity: ROM: limited active range of motion due to pain, limited passive range of motion due to pain, Circulation is intact in all extremities. Pulses: are normal with no appreciated deficits, Perfusion: the extremity is normally perfused throughout, Calf tenderness, is absent, Sensation intact. 19:52 Skin: injury, abrasion(s), small abrasion noted, of the left Achilles, Vital Signs: 19:39 BP 124 / 82; Pulse 93; Resp 17; Temp 98.8; Pulse Ox 98% ; Weight 91.63 kg; Height 5 ft. jj7 5 in. ; Pain 4/10; 20:18 BP 115 / 65; Pulse 94; Resp 16; Pulse Ox 100% on R/A; Pain 8/10; tl4 19:39 Body Mass Index 33.61 (91.63 kg, 165.1 cm) jj7 19:39 Pain Scale: Adult jj7 20:18 Pain Scale: Adult tl4 MDM: 19:47 Patient medically screened. sb4 21:18 Data reviewed: vital signs, nurses notes, radiologic studies, and as a result, I will sb4 discharge patient. Counseling: I had a detailed discussion with the patient and/or guardian regarding the historical points, exam findings, and any diagnostic results supporting the discharge/admit diagnosis, radiology results, the need for outpatient follow up, a orthopedic surgeon, if symptoms persist, to return to the emergency department if symptoms worsen or persist or if there are any questions or concerns that arise at home. 07/21 19:51 Order name: Ankle Left 3 View XRAY; Complete Time: 20:37 sb4 07/21 21:18 Order name: Crutches; Complete Time: 22:13 sb4 Administered Medications: 20:44 Drug: HYDROcodone-acetaminophen PO 5 mg-325 mg 2 tabs PO once Route: PO; tl4 21:31 Follow up: Response: No adverse reaction; Pain is decreased tl4 Disposition: 07/22 09:21 STAFF ATTESTATION STATEMENT: I was immediately available onsite in the emergency sd2 department for consultation in the care of this patient. I did not see or examine this patient. Shanon Beltrán MD. Disposition Summary: 07/22/23 21:18 Discharge Ordered Notes: Location: Home sb4 Problem: new sb4 Symptoms: have improved sb4 Condition: Stable sb4 Diagnosis - Contusion of left lower leg sb4 Followup: sb4 - With: Private Physician - When: As needed - Reason: Further diagnostic work-up, Recheck today's complaints, Re-evaluation by your physician Discharge Instructions: - Discharge Summary Sheet sb4 - Contusion, [id number] sb4 Forms: - Patient Portal Instructions sb4 - Leadership Thank You Letter sb4 Signatures: Dispatcher [employer] Shanon Deleon MD MD sd2 Lewis Sanchez RN RN jj7 Kell Tony PA-C PAJohnyC sb4 Sid Sherman RN RN tl4 Corrections: (The following items were deleted from the chart) 07/21 21:19 21:18 Pain in right lower leg sb4 sb4
[2023-07-22 22:30] VITALS: BP 115/65; TEMP 98.8; O2SAT 100
== END 2023-07-22 22:15 | disposition home or self-care (01) ==
LOC: ER 19:23
DX: S80.12XA Contusion of left lower leg, initial encounter (principal)
CPT/HCPCS: 99283

== ENCOUNTER 2024-12-19 23:00 | Emergency (ER) | payer BC, OTHER ==
--- NOTE | 2024-12-19 23:10 | EDPHYS ---
Physician Documentation [facility] Name: Trey Grover Age: 49 yrs Sex: Male : 1975 Arrival Date: 12/19/2024 Time: 23:00 Bed 20 Private MD: ED Physician Karl Hayden HPI: 12/19 23:26 This 49 yrs old Male presents to ER via Ambulatory with complaints of Foot kb Injury. 23:26 Pt is a 49 year old female who presents for bruising to arch of right foot that he kb noticed this evening. States he was using a shovel earlier so he could have done something to it then, but doesn't recall an injury. Came in to make sure it didn't look like a bite or infection. Historical: - Allergies: 23:08 No Known Allergies; jb4 - PMHx: 23:08 Diabetes - NIDDM; Diverticulitis; Hypertension; constipation; jb4 - PSHx: 23:08 Cholecystectomy; neck (ys); jb4 - Immunization history:: Adult Immunizations not up to date. - Infectious Disease History:: Denies. - Social history:: Smoking status: Patient reports the use of cigarette tobacco products, Rarely, Patient uses alcohol, occasionally. ROS: 23:25 Constitutional: As per HPI kb Exam: 23:25 Constitutional: This is a well developed, well nourished patient who is awake, alert, kb and in no acute distress. Head/Face: Normocephalic, atraumatic. ENT: Moist Mucous membranes Respiratory: Respirations even and unlabored. No increased work of breathing. Talking in full sentences MS/ Extremity: Pulses equal, no cyanosis. Neurovascular intact. Full, normal range of motion. Neuro: Awake and alert, GCS 15, oriented to person, place, time, and situation. 23:25 Skin: injury, contusion(s), that are superficial, of the arch of right foot, Vital Signs: 23:12 BP 158 / 98; Pulse 89; Resp 16; Temp 98.7(O); Pulse Ox 98% on R/A; Weight 81.19 kg; kb4 Height 5 ft. 5 in. ; 23:12 Body Mass Index 29.79 (81.19 kg, 165.1 cm) kb4 MDM: 23:04 Medical Screening Exam initiated kb 23:25 Differential diagnosis: dislocation, closed fracture, contusion. Data reviewed: vital kb signs, nurses notes. Test considered but Not performed: X-ray: xray considered but pt has no bony tenderness. Counseling: I had a detailed discussion with the patient and/or guardian regarding the historical points, exam findings, and any diagnostic results supporting the discharge/admit diagnosis, the need for outpatient follow up, a family practitioner, to return to the emergency department if symptoms worsen or persist or if there are any questions or concerns that arise at home. Administered Medications: No medications were administered Disposition Summary: 12/19/24 23:10 Discharge Ordered Notes: Location: Home kb Condition: Stable kb Diagnosis - Contusion of right foot kb Followup: kb - With: Emergency Department - When: As needed - Reason: Worsening of condition Followup: kb - With: Private Physician - When: 2 - 3 days - Reason: Recheck today's complaints, Continuance of care, Re-evaluation by your physician Discharge Instructions: - Discharge Summary Sheet kb - Foot Contusion, [id number] kb Forms: - Medication Reconciliation Form kb - Antibiotic Education kb - Prescription Opioid Use kb - Patient Portal Instructions kb - Leadership Thank You Letter kb Signatures: Jennifer Cifuentes, MANAGER REHAB-C MANAGER REHAB-Rex Masters, RN RN jb4
--- NOTE | 2024-12-19 23:10 | ER ---
Nurse's Notes [facility] Name: Trey Grover Age: 49 yrs Sex: Male : 1975 Arrival Date: 12/19/2024 Time: 23:00 Bed 20 Private MD: Diagnosis: Contusion of right foot Presentation: 12/19 23:07 Chief complaint: Patient states: I injured my foot earlier, I am not sure how. I jb4 noticed it around 2129. Coronavirus screen: At this time, the client does not indicate any symptoms associated with coronavirus-19. Ebola Screen: No symptoms or risks identified at this time. Initial Sepsis Screen: Does the patient meet any 2 criteria? No. Patient's initial sepsis screen is negative. Does the patient have a suspected source of infection? No. Patient's initial sepsis screen is negative. Risk Assessment: Do you want to hurt yourself or someone else? Patient reports no desire to harm self or others. Onset of symptoms was December 19, 2024. Transition of care: patient was not received from another setting of care. 23:07 Method Of Arrival: Ambulatory jb4 23:07 Acuity: JAMARCUS 4 jb4 Historical: - Allergies: 23:08 No Known Allergies; jb4 - PMHx: 23:08 Diabetes - NIDDM; Diverticulitis; Hypertension; constipation; jb4 - PSHx: 23:08 Cholecystectomy; neck (ys); jb4 - Immunization history:: Adult Immunizations not up to date. - Infectious Disease History:: Denies. - Social history:: Smoking status: Patient reports the use of cigarette tobacco products, Rarely, Patient uses alcohol, occasionally. Screenin:12 [place] ED Fall Risk Assessment (Adult) History of falling in the last 3 months, kb4 including since admission No falls in past 3 months (0 pts) Confusion or Disorientation No (0 pts) Intoxicated or Sedated No (0 pts) Impaired Gait No (0 pts) Mobility Assist Device Used No (0 pt) Altered Elimination No (0 pt) Score/Fall Risk Level 0 - 2 = Low Risk Oriented to surroundings, Maintained a safe environment, Hourly rounding (assess needs \T\ fall precautionary measures) done. Abuse screen: Denies threats or abuse. Denies injuries from another. Nutritional screening: No deficits noted. Tuberculosis screening: No symptoms or risk factors identified. Assessment: 23:13 General: Appears in no apparent distress. comfortable, Behavior is calm, cooperative. kb4 Pain: Complains of pain in arch of right foot. Neuro: Level of Consciousness is awake, alert, obeys commands, Oriented to person, place, time, situation. Cardiovascular: Capillary refill < 3 seconds Patient's skin is warm and dry. Respiratory: Airway is patent Respiratory effort is even, unlabored, Respiratory pattern is regular, symmetrical. GI: No signs and/or symptoms were reported involving the gastrointestinal system. : No signs and/or symptoms were reported regarding the genitourinary system. EENT: No signs and/or symptoms were reported regarding the EENT system. Derm: Skin is intact, is healthy with good turgor, Skin is pink, warm \T\ dry. normal, Bruising that is dark purple, on arch of right foot. Musculoskeletal: Circulation, motion, and sensation intact. Range of motion: intact in all extremities. Vital Signs: 23:12 BP 158 / 98; Pulse 89; Resp 16; Temp 98.7(O); Pulse Ox 98% on R/A; Weight 81.19 kg; kb4 Height 5 ft. 5 in. ; 23:12 Body Mass Index 29.79 (81.19 kg, 165.1 cm) kb4 ED Course: 23:03 Patient arrived in ED. mr 23:03 Jennifer Cifuentes FNP-Brendan [facility] kb 23:03 Karl Hayden MD is Attending Physician. kb 23:07 Sabrina Freeman, RN is Primary Nurse. kb4 23:08 Triage completed. jb4 23:08 Arm band placed on right wrist. jb4 23:12 Patient has correct armband on for positive identification. Provided Education on: kb4 discharge follow up. 23:12 No provider procedures requiring assistance completed. Patient did not have IV access kb4 during this emergency room visit. Administered Medications: No medications were administered Medication: 23:13 VIS not applicable for this client. kb4 Outcome: 23:10 Discharge ordered by . kb 23:14 Discharged to home ambulatory, kb4 23:14 Condition: good 23:14 Discharge instructions given to patient, Instructed on discharge instructions, follow up and referral plans. Demonstrated understanding of instructions, follow-up care, 23:14 Patient left the ED. kb4 Signatures: Jennifer Cifuentes BOTANY PROFESSOR-C BOTANY PROFESSOR-Ckb Jenna Morin, Reg Reg mr Rex Saba, RN RN jb4 Sabrina Freeman, RN RN kb4
[2024-12-19 23:49] VITALS: BP 158/98; TEMP 98.7; O2SAT 98
== END 2024-12-19 23:14 | disposition home or self-care (01) ==
LOC: ER 23:00
DX: S90.31XA Contusion of right foot, initial encounter (principal)
CPT/HCPCS: 99282